=== PATIENT | female | born 2000 | race Caucasian/White ===

== ENCOUNTER 2021-03-24 20:43 | Observation (INO) ==
[2021-03-24 21:11] LABS: Amorphous Sediment,Urine Few per hpf (None-Few); Bacteria,Urine Few per hpf (None-Few); Bilirubin,Urine Negative (Negative); Blood,Urine Negative (Negative); Clarity,Urine Turbid (Clear); Color,Urine Light-Yellow (Yellow); Glucose,Urine (UA) Normal (Normal); Ketones,Urine Negative (Negative); Leukocyte Esterase,Urine Large (Negative); Mucus,Urine Few per lpf (None-Few); Nitrite,Urine Negative (Negative); Protein,Urine 30 mg/dL (Neg-Trace); RBC,Urine 0-3 per hpf (0-3); Specific Gravity,Urine 1.026 (1.010-1.025); Squamous Epithelial Cell,Urine Moderate per hpf (None-Few); Urobilinogen,Urine Normal (Normal); WBC,Urine 15-30 per hpf (0-3)
[2021-03-24] MEDS ORDERED: Terbutaline 1 MG/ML VIAL SQ ONE ×2 (23:00→23:01)
== END 2021-03-24 23:49 | disposition home or self-care (01) ==
LOC: 1NENULAB
PROVIDERS: ADMIT Obstetrics & Gynecology; ATTEND Obstetrics & Gynecology

== ENCOUNTER 2021-04-21 17:07 | Observation (INO) ==
[2021-04-21 17:51] LABS: Bacteria,Urine Few per hpf (None-Few); Bilirubin,Urine Negative (Negative); Blood,Urine Negative (Negative); Clarity,Urine Turbid (Clear); Color,Urine Yellow (Yellow); Glucose,Urine (UA) Normal (Normal); Ketones,Urine Trace mg/dL (Negative); Leukocyte Esterase,Urine Large (Negative); Mucus,Urine Few per lpf (None-Few); Nitrite,Urine Negative (Negative); Protein,Urine Trace mg/dL (Neg-Trace); RBC,Urine 0-3 per hpf (0-3); Specific Gravity,Urine 1.024 (1.010-1.025); Squamous Epithelial Cell,Urine Many per hpf (None-Few); Urobilinogen,Urine Normal (Normal); WBC,Urine 15-30 per hpf (0-3)
== END 2021-04-21 18:25 | disposition home or self-care (01) ==
LOC: 1NENULAB
PROVIDERS: ADMIT Registered Nurse; ATTEND Registered Nurse

== ENCOUNTER 2021-05-17 09:53 | Inpatient (IN) ==
[2021-05-17] MEDS ORDERED: Metoclopramide 10 MG/2 ML VIAL IVP PRN ×2 (10:07→18:19)
[2021-05-17] MEDS ORDERED: Naloxone 0.4 MG/ML INJ IVP PRN (10:07)
[2021-05-17] MEDS ORDERED: Famotidine 20 MG/2 ML VIAL IVP PRN (10:07)
[2021-05-17] MEDS ORDERED: Oxytocin 20 units/ LR 1000 mL 20 UNIT/1,000 ML BAG IVC SCH ×3 (10:15→18:19)
[2021-05-17 11:38] LABS: Basophils % 0.3 %; Eosinophils # 0.2 K/mcL (0.0-0.6); Eosinophils % 2.3 %; Hematocrit 35.5 % (35.3-44.9); Hemoglobin 11.8 g/dL (11.5-15.4); Immature Granulocytes % 0.3 % (0-4); Lymphocytes # 1.7 K/mcL (0.6-4.6); Lymphocytes % 16.8 %; Mean Corpuscular HGB Conc 33.2 g/dL (31.6-35.5); Mean Corpuscular Hemoglobin 26.8 pg (28.0-33.3); Mean Corpuscular Volume 80.7 fL (83.0-100.0); Mean Platelet Volume 9.5 fL (9.4-12.4); Monocytes # 0.6 K/mcL (0.0-1.3); Neutrophils # 7.6 K/mcL (1.6-8.9); Platelet Count 283 K/mcL (140-400); Red Cell Distribution Width 13.5 % (11.5-14.5); Segmented Neutrophils % 74.3 %; White Blood Count 10.3 K/mcL (4.3-11.1)
[2021-05-17 11:42] LABS: Amphetamine Screen,Urine Negative ng/mL (Cutoff=1000); Barbiturate Screen,Urine Negative ng/mL (Cutoff=200); Benzodiazepines Screen,Urine Negative ng/mL (Cutoff=200); Cannabinoid Screen,Urine Negative ng/mL (Cutoff = 50); Cocaine Screen,Urine Negative ng/mL (Cutoff= 300); Opiate Screen,Urine Negative ng/mL (Cutoff=300); Phencyclidine Screen,Urine Negative ng/mL (Cutoff=25)
[2021-05-17] MEDS: Ringers Solution, Lactated 1,000 ML IVC SCH ×2 (12:02→14:28)
[2021-05-17] MEDS ORDERED: EPHEDrine 50 MG/ML VIAL IVP PRN (13:39)
[2021-05-17] MEDS ORDERED: Epidural Premix (fent/bupiv) 110 ML EP SCH (13:45)
[2021-05-17] MEDS ORDERED: Ropivacaine/PF 0.2% 20 ML VIAL ONE (13:55)
[2021-05-17] MEDS ORDERED: *HR* FentaNYL (PF) 100 MCG/2 ML VIAL ONE (13:55)
[2021-05-17] MEDS ORDERED: Terbutaline 1 MG/ML VIAL SQ ONE ×2 (15:01)
[2021-05-17] MEDS ORDERED: Acetaminophen IV 1,000 MG/100 ML BAG IVPB ONE (15:11)
[2021-05-17] MEDS ORDERED: Ketorolac 30 MG/ML VIAL ONE (15:12)
[2021-05-17] MEDS ORDERED: Oxytocin 20 units/ LR 1000 mL 20 UNIT/1,000 ML BAG IVC ONE (15:16)
[2021-05-17] MEDS ORDERED: *HR* Morphine Sulfate/PF 10 MG/10 ML AMPUL ONE (15:28)
[2021-05-17] MEDS ORDERED: *HR* Succinylcholine 200 MG/10 ML VIAL IVP ONE (15:57)
[2021-05-17] MEDS ORDERED: Ondansetron 4 MG/2 ML VIAL ONE (15:59)
[2021-05-17] MEDS ORDERED: *HR* OxyCODONE Immed Rel 5 MG TABLET PO PRN (16:13)
[2021-05-17] MEDS ORDERED: *HR* FentaNYL (PF) 100 MCG/2 ML VIAL IVP PRN (16:13)
[2021-05-17] MEDS ORDERED: Ringers Solution, Lactated 1,000 ML IVC SCH (18:19)
[2021-05-17] MEDS ORDERED: Simethicone 80 MG TAB.CHEW PO PRN (18:19)
[2021-05-17] MEDS ORDERED: Ondansetron 4 MG/2 ML VIAL IVP PRN (18:19)
[2021-05-17] MEDS ORDERED: Rho Immune Globulin 1,500 UNIT SYRINGE IM ONE (18:19)
[2021-05-17] MEDS: Ibuprofen 600 MG TABLET PO SCH (18:42)
[2021-05-17] MEDS: Acetaminophen 325 MG TABLET PO SCH (18:42)
[2021-05-17] MEDS: *HR* Enoxaparin 80 MG/0.8 ML SYRINGE SQ SCH (20:34)
[2021-05-18] MEDS: Acetaminophen 325 MG TABLET PO SCH ×4 (03:37→22:35)
[2021-05-18] MEDS: Ibuprofen 600 MG TABLET PO SCH ×4 (03:38→22:35)
[2021-05-18 04:33] LABS: Basophils % 0.2 %; Hematocrit 27.9 % (35.3-44.9); Immature Granulocytes % 0.4 % (0-4); Lymphocytes # 1.6 K/mcL (0.6-4.6); Lymphocytes % 11.7 %; Mean Corpuscular HGB Conc 32.3 g/dL (31.6-35.5); Mean Corpuscular Hemoglobin 26.5 pg (28.0-33.3); Mean Corpuscular Volume 82.1 fL (83.0-100.0); Mean Platelet Volume 9.8 fL (9.4-12.4); Monocytes # 0.6 K/mcL (0.0-1.3); Monocytes % 4.4 %; Platelet Count 223 K/mcL (140-400); Red Cell Distribution Width 13.7 % (11.5-14.5); Segmented Neutrophils % 83.3 %; White Blood Count 13.2 K/mcL (4.3-11.1)
[2021-05-18] MEDS ORDERED: Prenatal Vit/FA 1 EACH TABLET PO SCH (09:00)
[2021-05-18] MEDS: Prenatal Vit/FA 1 EACH TABLET PO SCH (10:07)
[2021-05-18] MEDS: *HR* Enoxaparin 80 MG/0.8 ML SYRINGE SQ SCH ×2 (10:08→20:34)
[2021-05-18] MEDS: *HR* OxyCODONE/APAP 5/325 TABLET PO PRN (20:34)
[2021-05-18 21:12] VITALS: O2SAT 98
[2021-05-19] MEDS: *HR* OxyCODONE/APAP 5/325 TABLET PO PRN ×2 (02:29→10:52)
[2021-05-19] MEDS: Acetaminophen 325 MG TABLET PO SCH (04:58)
[2021-05-19] MEDS: Ibuprofen 600 MG TABLET PO SCH (04:58)
[2021-05-19] MEDS: *HR* Enoxaparin 80 MG/0.8 ML SYRINGE SQ SCH (08:21)
[2021-05-19] MEDS: Prenatal Vit/FA 1 EACH TABLET PO SCH (08:21)
[2021-05-19 08:55] VITALS: BP 99/61; PULSE 102; TEMP 97.7
== END 2021-05-19 13:42 | disposition home or self-care (01) | DRG 540 ==
LOC: 1NENULAB 09:53 → 1NENUOBS 18:11
PROVIDERS: ADMIT Student in an Organized Health Care Education/Training Program; ATTEND Student in an Organized Health Care Education/Training Program